=== PATIENT | male | born 2000 | race Caucasian/White ===

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

== ENCOUNTER 2025-01-14 14:56 | Emergency (ER) | payer OTHER, SELFPAY ==
--- NOTE | ~2025-01-14 | XR_ITS ---
EXAMINATION: XR HAND, LEFT CLINICAL INFORMATION: thumb pain s/p hyperextension injury COMPARISON: None available. TECHNIQUE: PA, lateral, and oblique views of the left hand. FINDINGS: No fracture, dislocation, or suspicious bone lesion. The thumb is intact. There is normal alignment. Joint spaces are preserved. Carpal bones are intact and normally aligned. No soft tissue abnormalities. XR/XR hand LT min 3V IMPRESSION: Normal left hand and thumb. Electronically signed by: Garett Bender MD 01/14/2025 04:57 PM EDT
[2025-01-14 15:09] VITALS: BP 161/81; PULSE 83; RESP 16; TEMP 36.6; O2SAT 99; BMI 23.6
--- NOTE | 2025-01-14 15:13 | ED.EXTPRO ---
HPI - Extremity Problem General Chief complaint: Extremity Injury, Upper Stated complaint: Hand injury Time Seen by Provider: 01/14/25 16:26 Source: patient Mode of arrival: ambulatory Limitations: no limitations History of Present Illness ED Provider: DONNA MONTIEL PA-C HPI Narrative: 24-year-old opzit-gcyi-cfavvoqh male presents to the ED today for evaluation after sustaining a left hand injury while at work yesterday. Patient states that he was working on a ladder when he lost his balance and caught himself with his left thumb, resulting in hyperextension. He reports noticing increased swelling and a small bruise to the left thumb. Admits to pain. Denies any difficulty moving the thumb. Reports using tiger balm last night with minimal effect. Related Data Home Medications ?Medication ?Instructions ?Recorded ?Confirmed No Known Home Meds 02/09/20 02/09/20 Allergies Allergy/AdvReac Type Severity Reaction Status Date / Time No Known Allergies (No Known Allergy Verified 01/14/25 15:09 Allergies*) Review of Systems Review of Systems: Yes all other systems are reviewed and are negative PMFSH Past Medical History Attestation statement: The following information was validated with the patient. Source: old records reviewed and nursing notes reviewed Medical History Right hand fracture Surgical History History of open reduction and internal fixation (ORIF) procedure Status post open reduction and internal fixation (ORIF) of fracture Family History Family History Mother No problems noted. Social History Social History Alcohol intake: never Patient Tobacco Use Status: Never used Tobacco Current occupational status: employed Current occupation: Stocking/ rt handed Physical Exam Vital Signs: Vital Signs: Last Vital Signs Temp 97.8 F 01/14/25 18:02 Pulse 83 01/14/25 18:02 Resp 16 01/14/25 18:02 BP 161/81 H 01/14/25 18:02 Pulse Ox 99 01/14/25 18:02 O2 Del Method Room Air 01/14/25 18:02 BMI result Body Mass Index 23.6 Hypertensive, vitals are otherwise WNL General: Well appearing, in no acute distress. Skin: Warm, dry, intact. No rashes or lesions. Head: Normocephalic, atraumatic. Cardiac: Chest wall symmetric. RRR. No MRG. No JVD. Lungs: Normal respiratory effort without accessory muscle use. CTA bilaterally Ext: + small area of ecchymosis noted to left thenar eminence. No deformity. Full ROM intact to left thumb. Finger strength intact. Nufkgs-af-sgndo opposition intact. No tenderness to palpation. no snuffbox tenderness. nv intact. Neuro: AOx3. Normal speech. Ambulating with steady gait. Course Course Course Narrative: This is an RME: Additional HPI, ROS, PE not included below will be deferred to primary provider. RME assessment and note performed by: Luisa Garcia PA-C This is a 24-year-old male presents emergency department with concerns of left thumb pain. He accidentally hyperextended his left thumb will jumping off a ladder. No head strike or LOC. Plan: X-rays, further ER evaluation needed. Reevaluation(s) Reevaluation #1: X-rays unremarkable. No fracture. Patient likely sprained his thumb. Exam benign. Educated on rice therapy. Patient has remained stable throughout ED visit today. Discussed worrisome signs and symptoms and when to return to the ED. All questions answered at this time. Patient is agreeable with disposition and stable for discharge. Medical Decision Making Medical Decision Making MDM Narrative: 24-year-old rpciz-qfdl-okryvvho male presents to the ED today for evaluation after sustaining a left hand injury while at work yesterday. Hypertensive, vitals are otherwise WNL. On exam, small area of ecchymosis noted to left thenar eminence. No deformity. Full ROM intact to left thumb. Finger strength intact. Jsdloy-um-qxxvo opposition intact. No tenderness to palpation. no snuffbox tenderness. nv intact. Differential diagnosis includes MSK sprain/strain, fracture, contusion. Unlikely dislocation. Plan for imaging, pain control and re-evaluation. Differential Diagnosis Differential Diagnoses: The differential diagnosis associated with the presentation includes as above. Admission/Observation Not indicated Independent Interpretation I performed an independent interpretation of an: Plain X-Ray Interpretation: xr left hand without fracture Radiology Impression Discussion of test interpretation with radiology: I have reviewed the radiologist's reading. Radiologist Impression: EXAMINATION: XR HAND, LEFT CLINICAL INFORMATION: thumb pain s/p hyperextension injury COMPARISON: None available. TECHNIQUE: PA, lateral, and oblique views of the left hand. FINDINGS: No fracture, dislocation, or suspicious bone lesion. The thumb is intact. There is normal alignment. Joint spaces are preserved. Carpal bones are intact and normally aligned. No soft tissue abnormalities. XR/XR hand LT min 3V IMPRESSION: Normal left hand and thumb. Electronically signed by: Garett Bender MD 01/14/2025 04:57 PM EDT RP Independent Historian Clinical information obtained from an independent historian. History obtained from or confirmed by: Parent (mom) External Record Review External record reviewed: Inpatient record Prescription Management I considered prescription management with: Pain Medication Social Determinants Patient?s care significantly limited by Social Determinants of Health including: Other Social Determinant of Health Critical Care Time Critical Care Time Critical Care Time: No Discharge Plan Discharge Clinical Impression: Left thumb sprain Patient Disposition: Home, Self-Care Instructions: Finger Sprain (ED) Additional Instructions: You were evaluated in the ED today following an injury to your left thumb yesterday. Your x-rays do not reveal any fracture. You sprained your thumb. Rest the thumb. Apply ice for 20 minutes at a time. You may take Tylenol and Motrin at home as needed for pain/discomfort. Follow up with your PCP. If you find you were having difficulty moving the thumb or if symptoms worsen, you may follow up with our hand surgeon, Dr. Schmidt. Referral provided. As this was a work-related injury, you may follow up with [facility]. Referral provided. Return with any new or worsening symptoms. In the case of an emergency call 911. Prescriptions: No Action No Known Home Meds Referrals: [facility] [Outside] Deepti Schmidt MD [Physician, Hand Surgery] Stand Alone Forms: Work/School Release Interventions: ED Discharge Assessment Last Done: 01/14/25 18:02 Discharge Date/Time: 01/14/25 18:03 Print Language: Guatemalan
[2025-01-14 18:02] VITALS: BP 161/81; PULSE 83; RESP 16; TEMP 36.6; O2SAT 99
--- OUTSIDE RECORDS SUMMARY | 2025-01-14 19:30 | XMS_ITS | Encounter Summary ---
Author Organization [facility] Address [address] [place] [address] Phone Care Team Providers Care Earth Burner Name Role Phone Prateek Montalvo MD Primary Care Provider [phone] Encounter Details Date Type Department Care Team ([facility] st Contact Info) Description 11/08/2016 Conversion Encounter [facility] [address] [place] [address] Social History Tobacco Use Types Packs/Day Years Used Date Smoking Tobacco: Never Comments:Never smoker Sex and Gender Information Value Date Recorded Sex Assigned at Male 02/04/2020 9:01 AM EST Legal Sex Male 4:54 PM EDT Gender Identity Male 02/04/2020 9:01 AM EST Sexual Orientation Straight 02/04/2020 9: 01 AM EST documented as of this encounter Plan of Treatment Not on file documented as of this encounter Visit Diagnoses Not on filedocumented in this encounter Care Teams Earth Burner Relationship Specialty Start Date End Date Prateek Montalvo MD [address] [place] [address] PCP - General Pediatrics 11/18/19 09/12/22 documented as of this encounter
--- OUTSIDE RECORDS SUMMARY | 2025-01-14 19:30 | XMS_ITS | Encounter Summary ---
Author Organization [facility] Address [address] [place] [phone] Phone Care Team Providers Care Scanning Coordinator Name Role Phone Prateek Montalvo MD Primary Care Provider [phone] Encounter Details Date Type Department Care Team (Late st Contact Info) Description 02/07/2016 Documentation [facility] [place] [facility] [address] [place] [address] Family Medicine, Physician [address] [place] [address] Social History Tobacco Use Types Packs/Day Years [...] on filedocumented in this encounter Care Teams Scanning Coordinator Relationship Specialty Start Date End Date Prateek Montalvo MD [address] [place] [address] [place] [address] PCP - General Pediatrics 11/18/19 09/12/22 documented as of this encounter
--- OUTSIDE RECORDS SUMMARY | 2025-01-14 19:30 | XMS_ITS | Clinical Summary ---
Author Organization [facility] Address [address] [place] [address] Phone Care Team Providers Care Line Construction Engineer Name Role Phone Unavailable Primary Care Provider Unavailabl e Allergies No known active allergies Medications No known medications Active Problems Problem Noted Date Diagnosed Date Myopia, bilateral 01/31/2017 Overview (02/04/2020): 02/11 - last saw eye doc a year ago Immunizations Immunization Administration Dates Next Due DTaP 5 06/07/2005, 3,2001,09/01,2001 HPV Vaccine 9 Valent 01/31/2017,09/30/2015 Hep A, ped/adol 09/30/2015,02/25/2014 Hep B, ped/adol 01/29/2002,2001,2001 Hib (PRP-T) 07/30/2002, 2,2001,06/26 IPV 06/07/2005, 2,2001,06/26 Influenza, injectable, quadr ivalent, preservative free 02/04/2020 MMR 06/07/2005,05/25/2002 Meningococcal Conj (Menactra) MCV4P 08/14/2018,1 03/31/2012 Pneumococcal Conjugate 07/30/2002,2001,2001,06/26 Tdap 01/29/2013 Varicella 01/08/2008,05/25/2002 Family History Medical History Relation Name Comments Autism Brother Sanket No Known Problems Father Christopher Asthma Mother Marangely No Known Problems Sister Graciela Relation Name Status Comments Brother Sanket Alive Father Christopher Alive Mother Marangely Alive Other No family histo ry of Obesity, No family history of Cancer, Family history of Asthma, Family history of Seizure disorder, No family history of Deafness, No family history of Strabismus, Family history of Diabetes mellitus, No family history of Hyperlipidemia, No family history of Developmental dislocation of hip, No family history of Heart disease, , No family history of Stroke, No family history of ADD/ADHD, No family history of Sudden , No family history of Migraines Sister Graciela Alive Social History Tobacco Use Types Packs/Day Years Used Date Smoking Tobacco: Never Smokeless Tobacco: Never Comments:Never smoker Alcohol Use Standard Drinks/Week Comments Never 0 (1 standard drink = 0.6 oz pur e alcohol) Hunger/Food Answer Date Recorded In the last 12 months, did y ou or your family ever eat less than you felt you should because there wasn't enough money for food? No 02/04/2020 Stable Housing Answer Date Recorded Are you worried that in the next 2 months you may not have stable housing? No 02/04/2020 Transportation Concerns Answer Date Rec orded In the last 12 months, have you or your family ever had to go without healthcare because you didn't have a way to get there? No 02/04/2020 Hazards in Home Answer Date Recorded Think about the place you li ve. Do you have problems with any of the following? Pests (mice or roaches), mold, no/not working smoke detectors, water leaks, no window guards. Yes 2019 Financing Utilities Answer Date Recorde d In the last 12 months, has t he electric, gas, oil, or water company threatened to shut off your services in your home? No 02/04/2020 Safety at Home Answer Date Recorded Are you or your family worried about feeling saf e in your home? No 02/04/2020 Outside Support Answer Date Recorded Do you feel that you need mo re support from other people or programs to help you care for yourself or your family? No 02/04/2020 Understanding Health Concerns Answer Da te Recorded Do you need help understandi ng your or your child's healthcare needs (diagnosis, medications, plan, etc.)? No 02/04/2020 Financing Health Concerns Answer Date R ecorded In the last 12 months, was t here a time when your child needed to see a doctor or get medications or supplies but could not because of cost? No 02/04/2020 Missing School or Work Answer Date Edson rded Did you or your child miss s chool or work because of a health problem that could have been avoided? No 02/04/2020 Sex and Gender Information Value Date Recorded Sex Assigned at Male 02/04/2020 9:01 AM EST Legal Sex Male 4:54 PM EDT Gender Identity Male 02/04/2020 9:01 AM EST Sexual Orientation Straight 02/04/2020 9: 01 AM EST Last Filed Vital Signs Vital Sign Reading Time Taken Comments Blood Pressure 110/67 02/04/2020 8:38 AM EST Pulse 64 02/04/2020 8:38 AM EST Temperature 36.1 C (97 F) 02/04/2020 8:38 AM EST Respiratory Rate - - Oxygen Saturation - - Inhaled Oxygen Concentration - - Weight 63.8 kg (140 lb 9.6 oz) 02/04/2020 8:38 A M EST Height 172.7 cm (5' 8 ) 02/04/2020 8:38 AM EST Body Mass Index 21.38 02/04/2020 8:38 AM EST Plan of Treatment Health Maintenance Due Date Last Done Comments Men B Vaccine (1 of 2 - Standard) 2017 DTaP,Tdap,and Td Vaccines (7 - Td or Tdap) 01/29/2023 01/29/2013, 06/07/2005, 11/02/2002, Additional history exists Influenza Vaccines (#1) 2024 02/04/2020 COVID-19 Vaccine (3 - 2024-2 6 season) 2024 01/27/2021, 01/06/2021 Hepatitis B Vaccines Completed 01/29/2002, 2001, 2001 HIB Vaccines Completed 07/30/2002, 07/2001, 2001, Additional history exists Pneumococcal Vaccine Completed 07/30/2002, 2001, 2001, Additional history exists IPV Vaccines Completed 06/07/2005, 09/2001, 2001, Additional history exists MMR Vaccines Completed 06/07/2005, 05/25/2002 Varicella Vaccines Completed 01/08/2008, 05/25/2002 Hepatitis A Vaccines Completed 09/30/2015, 02/26/20 14 HPV Vaccines Completed 01/31/2017, 09/30/2015 Meningococcal Vaccine Completed 08/14/2018, 013
== END 2025-01-14 18:03 | disposition home or self-care (01) ==
PROVIDERS: Emergency Provider Emergency Medicine
DX: S63.602A Unspecified sprain of left thumb, initial encounter (principal); S60.222A Contusion of left hand, initial encounter; R03.0 Elevated blood-pressure reading, without diagnosis of hypertension; X50.1XXA Overexertion from prolonged static or awkward postures, initial encounter; Y93.9 Activity, unspecified; Y92.9 Unspecified place or not applicable; Y99.8 Other external cause status
CPT/HCPCS: 73130; 99282; 99283

== ENCOUNTER → 2025-01-14 15:11 | Outpatient (BNV) | payer OTHER, SELFPAY | PROVIDERS: Emergency Provider Emergency Medicine; Visit Provider Radiology Diagnostic Radiology | DX: M79.645 Pain in left finger(s) (principal) | CPT/HCPCS: 73130 ==

== ENCOUNTER 2025-01-25 08:01 | Outpatient (REF) | payer OTHER, SELFPAY ==
--- NOTE | ~2025-01-25 | XR_ITS ---
EXAMINATION: XR HAND 3 OR MORE VIEWS LEFT HISTORY: M79.642 - Pain in left hand COMPARISON: Comparison is made with the prior examination dated 01/14/2025. FINDINGS: Three views of the left hand are submitted. Osseous mineralization is normal. There is no fracture or dislocation. The joint spaces are preserved. The soft tissues are unremarkable. XR/XR hand LT min 3V IMPRESSION: Unremarkable examination of the left hand. Electronically signed by: Javier Walters MD 01/25/2025 09:35 AM EST
--- OUTSIDE RECORDS SUMMARY | 2025-01-25 08:04 | XMS_ITS | Encounter Summary ---
Author Organization [facility] Address [address] [place] [phone] Phone Care Team Providers Care Solid Tire Finisher Name Role Phone Prateek Montalvo MD Primary Care Provider [phone] Encounter Details Date Type Department Care Team ([facility] st Contact Info) Description 11/08/2016 Conversion Encounter [facility] [address] [place] [address] Social History Tobacco Use Types Packs/Day Years [...] on filedocumented in this encounter Care Teams Solid Tire Finisher Relationship Specialty Start Date End Date Prateek Montalvo MD [address] [place] [address] PCP - General Pediatrics 11/18/19 09/12/22 documented as of this encounter
--- OUTSIDE RECORDS SUMMARY | 2025-01-25 08:04 | XMS_ITS | Encounter Summary ---
Author Organization [facility] Address [address] [place] [address] Phone Care Team Providers Care Clerical And Administrative Workers Name Role Phone Prateek Montalvo MD Primary Care Provider [phone] Encounter Details Date Type Department Care Team (Late st Contact Info) Description 02/07/2016 Documentation [facility] [place] [facility] [address] [place] [address] Family Medicine, Physician [address] [place] [address] Social History Tobacco Use Types Packs/Day Years [...] on filedocumented in this encounter Care Teams Clerical And Administrative Workers Relationship Specialty Start Date End Date Prateek Montalvo MD [address] [place] [address] PCP - General Pediatrics 11/18/19 09/12/22 documented as of this encounter
--- OUTSIDE RECORDS SUMMARY | 2025-01-25 08:05 | XMS_ITS | Clinical Summary ---
Author Organization [facility] Address [address] [place] [phone] Phone Care Team Providers Care Cloth Napping Supervisor Name Role Phone Unavailable Primary Care Provider [...]
== END 2025-01-25 08:02 | disposition home or self-care (01) ==
LOC: HO.HOSX 08:01
DX: S63.602D Unspecified sprain of left thumb, subsequent encounter (principal); W11.XXXD Fall on and from ladder, subsequent encounter
CPT/HCPCS: 73130

== ENCOUNTER 2025-01-25 08:38 | Outpatient (AMB) | payer OTHER, SELFPAY ==
--- NOTE | 2025-01-25 09:06 | MHC.OFFVIS ---
Intake Visit Reasons: ED: Left thumb sprain, DOI 01/13/25 Intake Note: Kemar is a 24 year old right hand dominant male who presents today for an ED Follow Up and evaluation of a Left Thumb Sprain, DOI: 01/13/25. Patient presented to [facility] [facility] ED 01/14/25 reporting he was working on a ladder when he began to fall, catching himself with his left thumb resulting in hyperextension. At the ED, he was advised to rest, apply ice, and take Tylenol and Motrin PRN. Patient states that he is feeling a little better. He notices when he is over working his hand he tends to feel sore. Allergies No Known Allergies (No Known Allergies*) Allergy (Verified 01/14/25 15:09) HPI [facility] ED: Left thumb sprain, DOI 01/13/25: Details: Kemar is a 24 year old right hand dominant male who presents today for an ED Follow Up and evaluation of a Left Thumb Sprain, DOI: 01/13/25. Patient presented to [facility] ED 01/14/25 reporting he was working on a ladder when he began to fall, catching himself with his left thumb resulting in hyperextension. At the ED, he was advised to rest, apply ice, and take Tylenol and Motrin PRN. Patient states that he is feeling a little better. He notices when he is over working his hand he tends to feel sore. Patient states that he has tenderness around the MCP joint of the left thumb. Denies numbness or tingling in the left upper extremity. No other acute complaints or concerns at this time. [facility] Medical History Right hand fracture Surgical History History of open reduction and internal fixation (ORIF) procedure Status post open reduction and internal fixation (ORIF) of fracture Family History Mother No problems noted. Social History Alcohol intake: never Patient Tobacco Use Status: Never used Tobacco Current occupational status: employed Current occupation: Stocking/ rt handed Review of Systems Const All systems reviewed & are unremarkable except as noted in HPI and below Physical Exam Extrem Other: Patient is alert, oriented, and in no acute distress. Neuro: Normal sensation of the tips of all digits of the left hand at this time Vascular: Cap refill brisk Pain: Tenderness to palpation about the ulnar aspect of the MCP joint of the left thumb Pain in this area with range of motion of the left thumb ROM: Patient is able to make a closed fist and extend all digits of the left hand fully, with some discomfort in the left thumb when doing so No ligamentous laxity with varus and valgus testing of the MCP joint of the left thumb noted Skin: No lacerations or abrasions. No palpable Stener lesion of the left thumb General: No ecchymosis, erythema, or evidence of infection. Psych: Appears grossly normal Affect normal Attitude cooperative Results Reviewed Results Reviewed: X-rays obtained in the office today and independently reviewed by me, Berny Mijares PA-C, demonstrate no fracture or acute bony abnormality of the left thumb. Assessment & Plan Assessment & Plan (1) Left thumb sprain: Code(s): S63.602A - Unspecified sprain of left thumb, initial encounter Category: Medical Plan 1. Sprain of UCL of the left thumb Date of injury 01/13/2025 Patient is educated about this condition Patient is educated about the typical treatment course At this time, patient is provided with comfort cool thumb spica brace to help with stabilization of the left thumb As there is no ligamentous laxity noted, and no Stener lesion noted, I do not feel that that the UCL is likely torn Patient is given a light duty note for work stating that he will have a 5 lb weight limit for 2 weeks, followed by a 10 lb weight limit for the following 2 weeks Patient will follow-up with us in 4-6 weeks for reassessment, sooner with any acute concerns Orders: Orders XR hand LT min 3V 01/25/25 M79.642 - Pain in left hand Coding Level of Care Code New Pt Level 3 (47567) Diagnoses Left thumb sprain S63.602A
== END 2025-01-25 09:33 | disposition home or self-care (01) ==
LOC: HO.HOS 08:38
DX: S63.682A Other sprain of left thumb, initial encounter (principal)
CPT/HCPCS: 99203

== ENCOUNTER → 2025-01-25 08:54 | Outpatient (BNV) | payer OTHER, SELFPAY | PROVIDERS: Visit Provider Radiology Diagnostic Radiology | DX: M79.642 Pain in left hand (principal) | CPT/HCPCS: 73130 ==

== ENCOUNTER 2025-03-02 08:44 | Outpatient (AMB) | payer OTHER, SELFPAY ==
--- NOTE | 2025-03-02 09:18 | MHC.OFFVIS ---
Vital Signs 03/02/25 09:21 Height 5 ft 7 in Weight 150 lb BMI 23.5 Intake Visit Reasons: OV-Left thumb sprain, WC DOI 01/13/25 Intake Note: Kemar is a 24 year old right hand dominant male who presents today for Follow Up status post Left Thumb UCL Sprain, WC DOI: 01/13/25. At his last visit, he was provided with comfort cool thumb spica brace to help with stabilization of the left thumb. Patient was given a light duty note with a 5 lb weight limit for 2 weeks, followed by a 10 lb weight limit for 2 more weeks. Today, patient complains of pain on the volar aspect of the base of his left thumb, primarily when bending the thumb back . He has been increasing his weight restriction without issue. Allergies No Known Allergies (No Known Allergies*) Allergy (Verified 03/02/25 09:22) HPI HPI OV-Left thumb sprain, WC DOI 01/13/25: Details: Kemar is a 24 year old right hand dominant male who presents today for Follow Up status post Left Thumb UCL Sprain, WC DOI: 01/13/25. At his last visit, he was provided with comfort cool thumb spica brace to help with stabilization of the left thumb. Patient was given a light duty note with a 5 lb weight limit for 2 weeks, followed by a 10 lb weight limit for 2 more weeks. Today, patient complains of occasional mild pain on the volar aspect of the base of his left thumb, primarily when bending the thumb back . He has been increasing his weight restriction without issue. Patient denies any other acute complaints or concerns at this time. [facility] Medical History Right hand fracture Surgical History History of open reduction and internal fixation (ORIF) procedure Status post open reduction and internal fixation (ORIF) of fracture Family History Mother No problems noted. Social History Alcohol intake: never Patient Tobacco Use Status: Never used Tobacco Current occupational status: employed Current occupation: Stocking/ rt handed Review of Systems Const All systems reviewed & are unremarkable except as noted in HPI and below Physical Exam Vital Signs: BMI result Body Mass Index 23.5 Extrem Other: Patient is alert, oriented, and in no acute distress. Neuro: Normal sensation of the tips of all digits of the left hand at this time Vascular: Cap refill brisk Pain: No further Tenderness to palpation about the ulnar aspect of the MCP joint of the left thumb No further Pain in this area with range of motion of the left thumb ROM: Patient is able to make a closed fist and extend all digits of the left hand fully, with some discomfort in the left thumb when doing so No ligamentous laxity with varus and valgus testing of the MCP joint of the left thumb noted Skin: No lacerations or abrasions. No palpable Stener lesion of the left thumb General: No ecchymosis, erythema, or evidence of infection. Psych: Appears grossly normal Affect normal Attitude cooperative Assessment & Plan Assessment & Plan (1) Left thumb sprain: Code(s): S63.602A - Unspecified sprain of left thumb, initial encounter Category: Medical Plan 1. Sprain of UCL of the left thumb Date of injury 01/13/2025 Patient is educated about this condition Patient is educated about the typical treatment course I feel it the patient's UCL sprain has healed quite well at this point, and he may gradually return back to full normal activity May continue to wear brace for comfort May return to work full duty at this point Patient will follow-up as needed with any acute concerns Coding Level of Care Code Est Pt Level 3 (98620) Diagnoses Left thumb sprain S63.602A
[2025-03-02 09:21] VITALS: BMI 23.5
== END 2025-03-02 09:28 | disposition home or self-care (01) ==
LOC: HO.HOS 08:45
DX: S63.602A Unspecified sprain of left thumb, initial encounter (principal)
CPT/HCPCS: 99213

== ENCOUNTER → 2025-03-02 08:44 | Outpatient (BNVA) | payer OTHER, SELFPAY | DX: S63.602D Unspecified sprain of left thumb, subsequent encounter (principal); X58.XXXD Exposure to other specified factors, subsequent encounter | CPT/HCPCS: 99212 ==